=== PATIENT | female | born 1985 | race Caucasian/White ===

== ENCOUNTER → 2020-05-22 15:53 | Outpatient (ROUT) | payer OTHER, SELFPAY | PROVIDERS: Family Provider Family Medicine; PCP Family Medicine; Visit Provider Nurse Practitioner Obstetrics & Gynecology | DX: Z34.90 Encounter for supervision of normal pregnancy, unspecified, unspecified trimester (principal); Z36.85 Encounter for antenatal screening for Streptococcus B; Z3A.37 37 weeks gestation of pregnancy | CPT/HCPCS: 87081 ==

== ENCOUNTER 2020-06-11 02:31 | Inpatient (IN) | payer OTHER, SELFPAY ==
--- NOTE | 2020-06-11 02:40 | PM.OBHP.1 ---
OB HPI Date/Time Date of admission: 06/11/20 Date Patient Seen: 06/11/20 Time Patient Seen: 02:25 History of Present Condition Chief complaint: Evaluation of labor : 2 Para: 1 Estimated Date of Delivery: 06/12/20 Estimated Gestational Age (weeks): 39w6d Narrative: Pio Macias is a 35 year old female at 39w6d who presents in active labor. PROM @ 2044 with clear fluid with rapid onset of mild contractions that steadily increased in frequency and intensity. Now breathing heavily through contractions. Feeling rectal pressure. Uncomplicated care. Desires low intervention . Supportive spouse at bedside. History of Present care: good care, initiated at week # (9) and number of visits (10) Dating criteria: LMP confirmed by 1st trimester US Ultrasounds: normal mid trimester US Obstetrical complications: none Medical complications: none Preadmission Labs Blood type: O (+) positive -: Antibody screen: negative, GBS status: negative, HIV: negative and RPR/VDLR: negative -: Chlamydia screen: not detected and Gonorrhea screen: not detected -: Rubella: immune HCT: 35.7 HCAB: negative 1 hr GTT: 73 Prior (ies) History: 05/06/2017, NSVB @ 40.2, second degree, 7# 12oz male, no complications Evaluation Evaluation Baseline heart rate: 130 Variability: Moderate (11-25) monitor accelerations: Absent monitor decelerations: Early Contraction Frequency (minutes): 3 Uterine Contraction Intensity: Strong/Firm Laboratory results: Laboratory Tests 06/11/20 06/11/20 06/11/20 02:40 02:50 02:50 WBC 14.8 H RBC 4.23 Hgb 12.7 Hct 36.9 MCV 87.1 MCH 30.1 MCHC 34.5 RDW 13.3 Plt Count 196 Neut % (Auto) 83.0 H Lymph % (Auto) 10.7 L [place] % (Auto) 5.3 Eos % (Auto) 0.7 L Baso % (Auto) 0.3 Neut # (Auto) 83346 H Lymph # (Auto) 1600 [place] # (Auto) 800 Eos # (Auto) 100 Baso # (Auto) 0 COVID-19 PCR Negative Blood Type O Positive Antibody Screen Negative Comments: Grossly ruptured, clear fluid. CE deferred as patient is pushing. PFSH Medical History HSV-1 (herpes simplex virus 1) infection (Acute) Family History (Updated 07/03/15 @ 00:00 by Ling Luther DO) Father Age: 65 Depression Hypertension Grandfather Heart disease Grandmother Cancer Mother Age: 65 Depression Prediabetes Hypertension Grandfather Diabetes mellitus Hypertension Grandmother Age: 96 Hypertension Social History (Updated 06/11/20 @ 04:20 by Maria A Joyce CNM) marital status: number of children: 1 household members: spouse and children education level: master's degree Meds Home Medications and Allergies Home Medications Medication Instructions Recorded Confirmed Type + DHA 06/11/20 History Allergies Allergy/AdvReac Type Severity Reaction Status Date / Time cat dander [CAT DANDER] Allergy Intermediate Verified 06/11/20 02:39 dog dander [DOG DANDER] Allergy Intermediate Verified 06/11/20 02:39 Review of Systems Review of Systems ROS: Yes All systems reviewed with the patient and are negative except as otherwise documented Exam Vital Signs (past 8 hours): BP 129/79 mmHg, HR 85 bpm, T 97.6 F Presentation: vertex Other: Rectal bulging Objective Labs Result Diagrams: 06/11/20 02:50 Labs: Laboratory Results - last 24 hr 06/11/20 06/11/20 06/11/20 02:40 02:50 02:50 WBC 14.8 H RBC 4.23 Hgb 12.7 Hct 36.9 MCV 87.1 MCH 30.1 MCHC 34.5 RDW 13.3 Plt Count 196 Neut % (Auto) 83.0 H Lymph % (Auto) 10.7 L [place] % (Auto) 5.3 Eos % (Auto) 0.7 L Baso % (Auto) 0.3 Neut # (Auto) 02010 H Lymph # (Auto) 1600 [place] # (Auto) 800 Eos # (Auto) 100 Baso # (Auto) 0 COVID-19 PCR Negative Blood Type O Positive Antibody Screen Negative Assessment and Plan Assessment and Plan Assessment and Plan narrative: A: Term multigravada. Active labor, second stage. PROM <6 hours without sx of infection. No indication for GBS prophylaxis. FHT Category II, overall reassuring for anticipated brief second stage. P: Admit to L&D. Anticipate rapid NSVB. Continous labor support. Continuous monitoring. Time Spent with Patient Total time spent with greater than 50% in coordination of care (as documented) at patient's floor/unit and/or counseling patient:: 25 - 35 minutes
[2020-06-11 03:03] LABS: Add Manual Diff / Slide Review NO; Basophils Absolute Auto 0 /uL (0-100); Basophils Percent Auto 0.3 % (0-2); Eosinophils Absolute Auto 100 /uL (0-450); Eosinophils Percent Auto 0.7 % (2-4); Hematocrit 36.9 % (36-46); Hemoglobin 12.7 g/dL (12.0-16.0); Lymphocytes Absolute Auto 1600 /uL (1100-4500); Lymphocytes Percent Auto 10.7 % (25-40); Mean Corpuscular HGB Conc 34.5 % (30-36); Mean Corpuscular Hemoglobin 30.1 PG (26-34); Mean Corpuscular Volume 87.1 fL (80-100); Monocytes Absolute Auto 800 /uL (0-900); Monocytes Percent Auto 5.3 % (3-14); Neutrophils Absolute Auto 12300 /uL (1500-7000); Platelet Count 196 X10^3/uL (150-400); Red Blood Cell Count 4.23 X10^6/uL (4.0-5.2); Red Cell Distribution Width 13.3 % (11.6-14.8); White Blood Cell Count 14.8 X10^3/uL (4.5-11.0)
[2020-06-11 03:03] LABS: COVID19 -Nasal RAPID Negative (Negative)
[2020-06-11] MEDS: OXYTOCIN 10 UNIT/ML VIAL 20 UNIT (03:06)
[2020-06-11] MEDS: LIDOCAINE 1% 20 ML (03:30)
[2020-06-11] MEDS: miSOPROStoL 200 MCG TABLET 400 MCG PO (04:15)
--- NOTE | 2020-06-11 04:32 | PM.OBPRVD ---
Events: Premature Rupture of Membrane (Total ROM <6 hours) Labor & Delivery Delivery date: 06/11/20 Cervical ripening method: none Induction method: none Delivery monitor: external FHT and external uterine Route of delivery: L&D Laceration Description: Vaginal - 1st Degree (R sulcus ) and Vaginal - 2nd Degree (L sulcus) Delivery repair: chromic (3.0) Estimated blood loss (mL): 300 Anesthesia type: None Narrative: Pio arrived in active labor with the spontaneous urge to push. FHTs Category II with early decelerations. Brief second stage and she birthed in left side-lying position. Head delivered OA and restituted to PAOLA. Shoulders transverse with single nuchal cord. Cord evulsed during reduction of nuchal. NSVB of a male, Apgars 9/9. Briefly taken to warmer for resuscitation with bulb suction and stimulation with cord clamp applied. Returned to maternal abdomen and placed skin to skin. Pitocin 10 units IM given. Intact placenta delivered in Schultze position with 3 vessel cord and marginal cord insertion noted. Cord blood collected. Fundal massage firm with steady trickle and small clots. First degree right sulcal and second degree left sulcal lacerations noted. Lidocaine 1% local administered for repair with 3.0 chromic gut. QBL 300 mL. Misoprostol 400 mcg given sublingual for continued small trickle. FOB skin to skin with baby during laceration repair. initiated and mother and baby left skin to skin as I left the room. [place] Baby 1: gender: Male Presentation: vertex Placenta delivery description: Spontaneous cord vessel description: 3 Vessels score (1 min): 9 score (5 min): 9 Plan for aftercare: Routine care. Anticipate discharge in 36 hours.
[2020-06-11 04:43] VITALS: BP 129/79
[2020-06-11] MEDS: IBUPROFEN 600 MG TABLET PO ×3 (08:33→22:03)
[2020-06-11] MEDS: DOCUSATE 100 MG CAPSULE PO ×2 (08:33→20:36)
[2020-06-11] MEDS: ACETAMINOPHEN 325 MG TABLET 650 MG PO (22:03)
--- NOTE | 2020-06-12 07:58 | PM.OBDS.1 ---
Discharge Providers Provider Date of admission: 06/11/20 02:31 Discharge Date: 06/12/20 Primary care physician: Gracie Briceño MD Consults: 06/12/20 04:03 Consult to Director Fraud Routine Comment: Discharge provider: Maria A Joyce CNM Summary Hospital Course Date Patient Seen: 06/12/20 Time Patient Seen: 08:00 Hospital Course: Pio is doing well overall. Ready to discharge home. Pain is well controlled with Ibuprofen. Exclusively , baby is cluster feeding every 2-3 hours. Voiding and ambulating independently. Tolerating a general diet. Minimal bleeding. Has good support in place. Peripartum Data Delivery Method: Natural Vaginal Laceration Description: Vaginal - 1st Degree and Vaginal - 2nd Degree complications: none Discharge Diagnosis (1) Second degree perineal laceration during delivery: Status: Acute Status at Discharge Cognitive/behavioral status at discharge: oriented Functional status at discharge: independent ambulation Overall status at discharge: patient is back to baseline Time Spent with Patient Time attestation: Total time spent providing and/or coordinating discharge services: Time spent: Less than 30 minutes Objective Labs Result Diagrams: 06/11/20 02:50 Exam Vital Signs (past 8 hours): BP 115/72mmHg, [id number], RR16/min, T99.2F Temporal Other: Fundus firm @ U. Lochia scant, no clots. Discharge Plan Discharge Plan Patient Disposition: Home Discharge orders & Medications Prescriptions: New acetaminophen 325 mg Tablet 650 mg PO Q6HR PRN (Reason: Pain, Mild (1-3)) 14 Days Qty: 60 RF: 0 docusate sodium [DOK] 100 mg Capsule 100 mg PO BID 14 Days Qty: 28 RF: 0 ibuprofen 600 mg Tablet 600 mg PO Q6HR PRN (Reason: Pain, Mild (1-3)) 14 Days Qty: 60 RF: 2 Continued + DHA bottle See Rx Instructions .ROUTE .COMPLEX RF: 0 Follow up/Referrals: Gracie Briceño MD [Primary Care Provider] - Maria A Joyce CNM [Advanced Business Process Coordinator] - (Follow-up by TeleHealth Follow-up in office) Diet/Activity/Treatments Diet: Regular Activity: pelvic rest x 6 weeks Skin/Wound/Dressing Care Report to your healthcare provider any signs of infection, such as:: chills, fever, increased pain, unusual drainage and unusual redness Visit Report/Discharge Packet Instructions: DI for Depression Discharge Data Primary Care Provider: Gracie Briceño
--- NOTE | 2020-06-12 09:07 | PM.DS.NB.1 ---
History of Present Illness History of Present Illness Chief complaint: maternity Discharge Providers Provider Date of admission: 06/11/20 02:31 Primary care physician: Gracie Briceño MD Consults: 06/12/20 04:03 Consult to Supervisor Doping Routine Comment: Discharge provider: Maria A Joyce CNM Exam - Pediatric Vital Signs Vital Signs: Vital Signs BP 129/79 06/11/20 04:43 Objective Labs Result Diagrams: 06/11/20 02:50 Discharge Plan Discharge Plan Patient Disposition: Home Discharge orders & Medications Prescriptions: New acetaminophen 325 mg Tablet 650 mg PO Q6HR PRN (Reason: Pain, Mild (1-3)) 14 Days Qty: 60 RF: 0 docusate sodium [DOK] 100 mg Capsule 100 mg PO BID 14 Days Qty: 28 RF: 0 ibuprofen 600 mg Tablet 600 mg PO Q6HR PRN (Reason: Pain, Mild (1-3)) 14 Days Qty: 60 RF: 2 Continued + DHA bottle See Rx Instructions .ROUTE .COMPLEX RF: 0 Follow up/Referrals: Gracie Briceño MD [Primary Care Provider] - Maria A Joyce CNM [Advanced Supervisor Public Message Service] - (Follow-up by TeleHealth Follow-up in office) Diet/Activity/Treatments Diet: Regular Activity: pelvic rest x 6 weeks Skin/Wound/Dressing Care Report to your healthcare provider any signs of infection, such as:: chills, fever, increased pain, unusual drainage and unusual redness Visit Report/Discharge Packet Instructions: DI for Depression Discharge Data Primary Care Provider: Gracie Briceño
[2020-06-12 09:52] VITALS: BP 129/79; TEMP 36.8
[2020-06-12] MEDS: ACETAMINOPHEN 325 MG TABLET 650 MG PO (10:51)
[2020-06-12] MEDS: DOCUSATE 100 MG CAPSULE PO (10:51)
[2020-06-12 11:23] VITALS: BP 119/74; PULSE 74; RESP 16; TEMP 36.6
== END 2020-06-12 11:23 | disposition home or self-care (01) | DRG 807 ==
PROVIDERS: Admitting Provider Nurse Practitioner Obstetrics & Gynecology; Family Provider Family Medicine; PCP Family Medicine; Referring Provider Nurse Practitioner Obstetrics & Gynecology; Visit Provider Nurse Practitioner Obstetrics & Gynecology
DX: O42.02 Full-term premature rupture of membranes, onset of labor within 24 hours of rupture (principal); Z37.0 Single live birth; Z3A.39 39 weeks gestation of pregnancy; O70.1 Second degree perineal laceration during delivery; O69.81X0 Labor and delivery complicated by cord around neck, without compression, not applicable or unspecified
CPT/HCPCS: 36415; 85025; 86850; 86900; 86901; 87635; G0379; J2590; S0191

== ENCOUNTER → 2022-02-08 19:31 | Outpatient (ROUT) | payer OTHER, SELFPAY | PROVIDERS: Family Provider Family Medicine; PCP Family Medicine; Visit Provider Nurse Practitioner Obstetrics & Gynecology | DX: Z34.90 Encounter for supervision of normal pregnancy, unspecified, unspecified trimester (principal); Z36.85 Encounter for antenatal screening for Streptococcus B; Z3A.36 36 weeks gestation of pregnancy | CPT/HCPCS: 87081 ==

== ENCOUNTER 2022-03-04 20:35 | Inpatient (IN) | payer OTHER, SELFPAY ==
--- NOTE | 2022-03-04 20:46 | PM.OBHP.1 ---
OB HPI Date/Time Date of admission: 03/04/22 Date Patient Seen: 03/04/22 Time Patient Seen: 08:50 History of Present Condition Chief complaint: observation of labor : 3 Para: 2 Estimated Date of Delivery: 03/05/22 Estimated Gestational Age (weeks): 39w6d Narrative: Pio Macias is a 36 year old female who arrives with moderate contractions every 4-8 minutes. Contractions started around 0800 today and have gradually intensified. She has had some pink discharge, otherwise no vaginal bleeding or loss of fluid. She is here with her [place]. She has had uncomplicated care with the exception of SUA finding at anatomy scan with normal 35w growth ultrasound. She desires a low intervention and declines an IV. History of Present care: good care, initiated at week # (10), number of visits (8) and pounds weight gain (23.6) Dating criteria: LMP confirmed by 1st trimester US Ultrasounds: abnormal US findings Abnormal ultrasound findings: single umblical artery, otherwise normal 22w anatomy US and normal 35w growth US Preadmission Labs Blood type: O (+) positive HCT: 36 Cell-free DNA: Negative 1 hr GTT: 138 Prior (ies) History: 05/06/17: at 40w2d, 3515 g, second degree perineal lac at [facility] 06/11/2020: at 39w6d, 4168 g, second degree perineal lac at [facility] Evaluation Evaluation Baseline heart rate: 135 Variability: Moderate (11-25) monitor accelerations: Present Monitor Decelerations: Absent Contraction Frequency (minutes): 5 Uterine Contraction Intensity: Strong/Firm Status: Category l Dilation (cm): 8 Effacement (%): 80 station: -2 Position of cervix: posterior [facility]istency: [facility] Medical History HSV-1 (herpes simplex virus 1) infection Family History Father Age: 67 Depression Hypertension Grandfather Heart disease Grandmother Cancer Mother Age: 67 Depression Prediabetes Hypertension Grandfather Diabetes mellitus Hypertension Grandmother Age: 98 Hypertension Social History (Updated 03/04/22 @ 21:08 by Maria A Alvarado CNM) marital status: number of children: 2 household members: spouse and children education level: master's degree Smoking Status: Never smoker Meds Home Medications and Allergies Home Medications Medication Instructions Recorded Confirmed Type + DHA See Rx Instructions .Route .COMPLEX 06/11/20 06/11/20 History Allergies Allergy/AdvReac Type Severity Reaction Status Date / Time cat dander [CAT DANDER] Allergy Intermediate Verified 06/11/20 02:39 dog dander [DOG DANDER] Allergy Intermediate Verified 06/11/20 02:39 Review of Systems Review of Systems ROS: Yes All systems reviewed with the patient and are negative except as otherwise documented OB Exam Resp Effort & Inspection: normal respiratory effort and able to speak in complete sentences Auscultation: clear to auscultation bilaterally Cardio Rate: regular rate Rhythm: regular rhythm Presentation: vertex Objective Labs Result Diagrams: 03/04/22 21:54 Assessment and Plan Assessment and Plan Assessment and Plan narrative: A: Term multipara Single umbilical artery - normal growth US at 35w No indication for GBS prophylaxis P: Admit, routine orders May switch to intermittent auscultation Labor support PRN Reassess in 4 hours or sooner
[2022-03-04 21:04] VITALS: BP 116/69
[2022-03-04 21:24] LABS: COVID19 -Nasal RAPID Negative (Negative)
[2022-03-04 22:06] LABS: Add Manual Diff / Slide Review NO; Basophils Absolute Auto 0 /uL (0-100); Basophils Percent Auto 0.3 % (0-2); Eosinophils Absolute Auto 0 /uL (0-450); Eosinophils Percent Auto 0.3 % (2-4); Hematocrit 38.1 % (36-46); Hemoglobin 13.2 g/dL (12.0-16.0); Lymphocytes Absolute Auto 900 /uL (1100-4500); Lymphocytes Percent Auto 9.2 % (25-40); Mean Corpuscular HGB Conc 34.6 % (30-36); Mean Corpuscular Hemoglobin 30.6 PG (26-34); Mean Corpuscular Volume 88.3 fL (80-100); Monocytes Absolute Auto 700 /uL (0-900); Monocytes Percent Auto 7.5 % (3-14); Neutrophils Absolute Auto 8100 /uL (1500-7000); Neutrophils Percent Auto 82.7 % (50-75); Platelet Count 177 X10^3/uL (150-400); Red Blood Cell Count 4.32 X10^6/uL (4.0-5.2); Red Cell Distribution Width 13.8 % (11.6-14.8); White Blood Cell Count 9.8 X10^3/uL (4.5-11.0)
[2022-03-04] MEDS: OXYTOCIN 10 UNIT/ML VIAL IM (22:32)
--- NOTE | 2022-03-04 23:01 | P.PCNOB_ITS ---
Labor & Delivery Delivery date: 03/04/22 Intrapartal Events: None Cervical ripening method: none Induction method: none Delivery monitor: external FHT Route of delivery: Episiotomy description: None L&D Laceration Description: None Quantitative Blood Loss: 200 Anesthesia Type: None Narrative: Pio coped well with an unmedicated labor. She felt a spontaneous urge to push and increased pressure, followed by spontaneous rupture of membranes with clear fluid immediately after first push. NSVB of vigorous baby girl with four handed delivery by CNM and FOB onto maternal abdomen. No nuchal cord and no additional maneuvers needed for delivery of the shoulders. Pitocin 10 u IM given by RN per active management protocol. Cord clamping was delayed until cessation of pulsation, clamped by CNM and cut by FOB. Cord blood was collected. Gentle cord traction led to delivery of apparently intact [place] placenta. Fundus was immediately firm and at the umbilicus. The vagina and perineum was inspected and intact. Baby was skin to skin with father at Pio's request when CNM left the room. [place] Baby 1: Infant gender: Female Presentation: vertex Position: Right Occiput Anterior Placenta delivery description: Spontaneous score (1 min): 9 score (5 min): 9 weight: 3.337 kg Plan for aftercare: Routine care
[2022-03-05] MEDS: ACETAMINOPHEN 325 MG TABLET 650 MG PO ×3 (02:31→15:39)
[2022-03-05] MEDS: IBUPROFEN 600 MG TABLET PO ×3 (02:31→15:40)
--- NOTE | 2022-03-05 17:44 | PM.OBDS.1 ---
Discharge Providers Provider Date of admission: 03/04/22 20:35 Discharge Date: 03/05/22 Primary care physician: Gracie Briceño MD Consults: 03/05/22 22:48 Consult to Software Configuration Specialist Routine Comment: Discharge provider: Maria A Alvarado CNM Summary Hospital Course Date Patient Seen: 03/05/22 Time Patient Seen: 17:45 Diagnoses: O80 Hospital Course: PPD1: S/p NSVB with no lacerations. Voiting, ambulating and independently. Tolerating a general diet. Pain is well controlled with PO medication. Vaginal bleeding is light without cots. remains present and supportive. Eager for discharge to home. Peripartum Data Delivery Method: Natural Vaginal Laceration Description: None Episiotomy description: None 1: Gender: Female Status at Discharge Cognitive/behavioral status at discharge: calm Functional status at discharge: independent ambulation Time Spent with Patient Time attestation: Total time spent providing and/or coordinating discharge services: Time spent: Less than 30 minutes Specific discharge activities: teaching Objective Labs Result Diagrams: 03/04/22 21:54 Labs: Laboratory Results - last 24 hr 03/04/22 03/04/22 03/04/22 20:59 21:54 21:54 WBC 9.8 RBC 4.32 Hgb 13.2 Hct 38.1 MCV 88.3 MCH 30.6 MCHC 34.6 RDW 13.8 Plt Count 177 Neut % (Auto) 82.7 H Lymph % (Auto) 9.2 L [place] % (Auto) 7.5 Eos % (Auto) 0.3 L Baso % (Auto) 0.3 Neut # (Auto) 8100 H Lymph # (Auto) 900 L [place] # (Auto) 700 Eos # (Auto) 0 Baso # (Auto) 0 SARS-CoV-2 (PCR) Negative Blood Type O Positive Antibody Screen Negative Exam Vital Signs (past 8 hours): BP 103/61mmHg, HR 63bpm, RR 16/min, T 97.5F Temporal Other: Fundus firm @ u-1, lochia scant. perineum intact. Discharge Plan Discharge Plan Patient Disposition: Home Provider Discharge Comment: pelvic rest x 6 weeks Discharge orders & Medications Prescriptions: New ibuprofen 600 mg Tablet 600 mg PO Q6HR PRN (Reason: Pain, Mild (1-3)) 14 Days Qty: 60 0RF Continued + DHA bottle See Rx Instructions .ROUTE .COMPLEX Rx Instructions: taken daily Follow up/Referrals: Gracie Briceño MD [Primary Care Provider] - Maria A Alvarado CNM [Advanced Airport Guide] - (Follow-up by Telehealth 03/18/22 @ 5:40pm Follow-up in office 04/12/22 @ 09:00am) Diet/Activity/Treatments Diet: Diet as Tolerated and Regular Activity: pelvic rest x 6 weeks Skin/Wound/Dressing Care Report to your healthcare provider any signs of infection, such as:: chills, fever, increased pain, unusual drainage and unusual redness Discharge Data Primary Care Provider: Gracie Briceño
== END 2022-03-05 18:55 | disposition home or self-care (01) | DRG 807 ==
PROVIDERS: Admitting Provider Nurse Practitioner Obstetrics & Gynecology; Family Provider Family Medicine; PCP Family Medicine; Referring Provider Nurse Practitioner Obstetrics & Gynecology; Visit Provider Nurse Practitioner Obstetrics & Gynecology
DX: O80 Encounter for full-term uncomplicated delivery (principal); Z37.0 Single live birth; Z3A.39 39 weeks gestation of pregnancy
CPT/HCPCS: 36415; 59025; 59050; 85025; 86850; 86900; 86901; 87635; C9803; G0379; J2590